=== PATIENT | female | born 1980 | race Two or more races ===

== ENCOUNTER → 2020-03-23 13:04 | Outpatient (BNVA) | payer SELFPAY | PROVIDERS: PCP Internal Medicine; Visit Provider Internal Medicine ==

== ENCOUNTER 2020-07-28 09:13 | Outpatient (REF) | payer MEDICAID, SELFPAY ==
[2020-07-28 10:11] LABS: Basophils Percent Auto 0.2 % (0-2); Eosinophils Absolute Auto 0.2 X10*3/uL (0.0-0.4); Eosinophils Percent Auto 1.2 % (0-4); Hematocrit 39.4 % (37-47); Hemoglobin 12.6 g/dl (12.0-16.0); Imm Gran Abs Auto 0.06 X10*3/uL (0.00-0.03); Imm Gran Pct Auto 0.5 % (0.0-0.4); Lymphocytes Absolute Auto 5.3 X10*3/uL (1.2-4.9); Lymphocytes Percent Auto 41.2 % (20-40); MANUAL DIFF FLAG SCAN; Mean Corpuscular Hemoglobin 26.7 pg (27.0-33.0); Mean Corpuscular Volume 83.5 fL (80-98); Mean Platelet Volume 9.4 fL (9.4-12.3); Monocytes Percent Auto 7.4 % (2-11); Neutrophils Absolute Auto 6.4 X10*3/uL (2.0-8.3); Neutrophils Percent Auto 49.5 % (45-73); Platelet Count 312 X10*3/uL (160-400); Red Blood Count 4.72 X10*6/uL (4.20-5.50); Red Cell Distribution Width 14.3 % (11.0-16.0); SCAN SMEAR FLAG 1; White Blood Count 12.9 X10*3/uL (4.8-10.8)
[2020-07-28 10:30] LABS: Estimated Average Glucose 128 mg/dL; Hemoglobin A1c % 6.1 %
[2020-07-28 10:32] LABS: Alanine Aminotransferase 15 U/L (0-31); Albumin Level 3.8 g/dL (3.5-5.0); Alkaline Phosphatase 69 U/L (39-117); Anion Gap 13 (12-20); Aspartate Amino Transferase 15 U/L (5-31); Bilirubin Total 0.3 mg/dL (0.0-1.0); Blood Urea Nitrogen 12 mg/dL (9-16); Calcium 8.4 mg/dL (8.4-10.2); Carbon Dioxide 26 mmol/L (22-29); Chloride 107 mmol/L (96-108); Cholesterol 170 mg/dL; Estimated Glomerular Filt Rate > 60; Glucose Random 92 mg/dL (60-115); HDL Cholesterol 46 mg/dL; LDL Cholesterol Calculated 97 mg/dl; Sodium 142 mmol/L (135-145); Total Protein 6.4 g/dL (6.5-8.0); Triglycerides 139 mg/dL
[2020-07-28 10:48] LABS: SLIDE REVIEW VERIFIED
== END 2020-07-28 09:14 | disposition home or self-care (01) ==
LOC: HO.LAB 09:13
PROVIDERS: PCP Internal Medicine; Visit Provider Internal Medicine
DX: E66.9 Obesity, unspecified (principal); E78.2 Mixed hyperlipidemia; N61.1 Abscess of the breast and nipple; Z72.0 Tobacco use
CPT/HCPCS: 36415; 80053; 80061; 83036; 85025

== ENCOUNTER 2021-09-17 12:29 | Emergency (ER) | payer MEDICAID, SELFPAY ==
[2021-09-17 14:20] VITALS: BP 146/83; PULSE 70; RESP 18; O2SAT 100; BMI 33.5
== END 2021-09-17 19:27 | disposition left against medical advice (07) ==
PROVIDERS: Emergency Provider Emergency Medicine; PCP Internal Medicine
DX: M79.661 Pain in right lower leg (principal); M79.644 Pain in right finger(s)
CPT/HCPCS: 99281

== ENCOUNTER 2022-01-03 11:51 | Outpatient (REF) | payer MEDICAID, SELFPAY ==
[2022-01-03 12:08] LABS: MANUAL DIFF FLAG NO
[2022-01-03 12:24] LABS: Basophils Percent Auto 0.3 % (0-2); Eosinophils Absolute Auto 0.1 X10*3/uL (0.0-0.4); Eosinophils Percent Auto 1.4 % (0-4); Hematocrit 37.5 % (37.0-47.0); Hemoglobin 11.9 g/dl (12.0-16.0); Imm Gran Abs Auto 0.02 X10*3/uL (0.00-0.03); Imm Gran Pct Auto 0.2 % (0.0-0.4); Lymphocytes Absolute Auto 4.1 X10*3/uL (1.2-4.9); Lymphocytes Percent Auto 43.4 % (20-40); Mean Corpuscular HGB Conc 31.7 g/dl (31.0-35.0); Mean Corpuscular Hemoglobin 26.2 pg (27.0-33.0); Mean Corpuscular Volume 82.6 fL (80.0-98.0); Monocytes Absolute Auto 0.6 X10*3/uL (0.1-1.2); Monocytes Percent Auto 6.7 % (2-11); Neutrophils Absolute Auto 4.5 x10*3/uL (2.0-8.3); Platelet Count 325 X10*3/uL (160-400); Red Blood Count 4.54 X10*6/uL (4.20-5.50); Red Cell Distribution Width 14.5 % (11.0-16.0); White Blood Count 9.4 X10*3/uL (4.8-10.8)
[2022-01-03 13:07] LABS: Alanine Aminotransferase 14 U/L (0-31); Alkaline Phosphatase 63 U/L (39-117); Anion Gap 14 (12-20); Aspartate Amino Transferase 15 U/L (5-31); Bilirubin Total 0.2 mg/dL (0.0-1.0); Blood Urea Nitrogen 7 mg/dL (9-16); Calcium 9.3 mg/dL (8.4-10.2); Carbon Dioxide 27 mmol/L (22-29); Chloride 105 mmol/L (96-108); Cholesterol 189 mg/dL; Estimated Glomerular Filt Rate > 60; Glucose Random 92 mg/dL (60-115); HDL Cholesterol 41 mg/dL; LDL Cholesterol Calculated 135 mg/dl; Potassium 4.8 mmol/L (3.3-5.1); Sodium 141 mmol/L (135-145); Total Protein 6.9 g/dL (6.5-8.0); Triglycerides 67 mg/dL
== END 2022-01-03 11:52 | disposition home or self-care (01) ==
LOC: HO.LAB 11:51
PROVIDERS: PCP Internal Medicine; Visit Provider Internal Medicine
DX: E66.9 Obesity, unspecified (principal); N39.3 Stress incontinence (female) (male); Z72.0 Tobacco use
CPT/HCPCS: 36415; 80053; 80061; 85025

== ENCOUNTER → 2023-11-25 12:52 | Outpatient (BNVA) | payer MEDICAID, SELFPAY | PROVIDERS: PCP Internal Medicine; Visit Provider Physician Assistant Surgical ==

== ENCOUNTER 2023-12-31 14:54 | Outpatient (REF) | payer MEDICAID, SELFPAY ==
[2023-12-31 15:15] LABS: MANUAL DIFF FLAG NO
[2023-12-31 15:43] LABS: Basophils Percent Auto 0.3 % (0-2); Eosinophils Absolute Auto 0.2 X10*3/uL (0.0-0.4); Eosinophils Percent Auto 1.8 % (0-4); Hematocrit 38.8 % (37.0-47.0); Hemoglobin 12.1 g/dl (12.0-16.0); Imm Gran Abs Auto 0.04 X10*3/uL (0.00-0.03); Imm Gran Pct Auto 0.4 % (0.0-0.4); Lymphocytes Absolute Auto 3.8 X10*3/uL (1.2-4.9); Lymphocytes Percent Auto 35.4 % (20-40); Mean Corpuscular HGB Conc 31.2 g/dl (31.0-35.0); Mean Corpuscular Hemoglobin 25.2 pg (27.0-33.0); Mean Corpuscular Volume 80.7 fL (80.0-98.0); Mean Platelet Volume 9.2 fL (9.4-12.3); Monocytes Absolute Auto 0.8 X10*3/uL (0.1-1.2); Monocytes Percent Auto 7.2 % (2-11); Neutrophils Absolute Auto 5.9 x10*3/uL (2.0-8.3); Neutrophils Percent Auto 54.9 % (45-73); Platelet Count 321 X10*3/uL (160-400); Red Blood Count 4.81 X10*6/uL (4.20-5.50); Red Cell Distribution Width 15.2 % (11.0-16.0); White Blood Count 10.8 X10*3/uL (4.8-10.8)
[2023-12-31 15:54] LABS: Estimated Average Glucose 126 mg/dL
[2023-12-31 16:10] LABS: Alanine Aminotransferase 15 U/L (0-31); Alkaline Phosphatase 65 U/L (39-117); Anion Gap 9 (12-20); Aspartate Amino Transferase 15 U/L (5-31); Bilirubin Total 0.2 mg/dL (0.0-1.0); Blood Urea Nitrogen 11 mg/dL (9-16); Calcium 9.6 mg/dL (8.4-10.2); Carbon Dioxide 30 mmol/L (22-29); Chloride 105 mmol/L (96-108); Cholesterol 195 mg/dL (<200); Estimated Glomerular Filt Rate > 60; Glucose Random 128 mg/dL (60-115); HDL Cholesterol 39 mg/dL (>40); LDL Cholesterol Calculated 120 mg/dL (<100); Potassium 4.2 mmol/L (3.3-5.1); Sodium 140 mmol/L (135-145); Total Protein 7.1 g/dL (6.5-8.0); Triglycerides 180 mg/dL (<150)
[2023-12-31 16:27] LABS: Thyroid Stimulating Hormone 1.75 uIU/mL (0.32-4.0)
== END 2023-12-31 14:55 | disposition home or self-care (01) ==
LOC: HO.LAB 14:54
PROVIDERS: PCP Internal Medicine; Visit Provider Internal Medicine
DX: E78.00 Pure hypercholesterolemia, unspecified (principal); G47.33 Obstructive sleep apnea (adult) (pediatric); I10 Essential (primary) hypertension; F17.200 Nicotine dependence, unspecified, uncomplicated
CPT/HCPCS: 36415; 80053; 80061; 83036; 84443; 85025

== ENCOUNTER 2024-01-08 02:32 | Emergency (ER) | payer MEDICAID, SELFPAY ==
--- NOTE | ~2024-01-08 | XR_ITS ---
EXAMINATION: XR CHEST 2 VIEWS CLINICAL INFORMATION: sob/prod cough COMPARISON: None. TECHNIQUE: PA and lateral chest radiograph FINDINGS: Normal appearance of the cardiomediastinal structures. Pleura normal pattern of pulmonary vasculature. No pulmonary consolidation is identified. Minimal multilevel anterior endplate osteophytosis of the thoracic spine. XR/XR chest 2V IMPRESSION: No cardiopulmonary abnormalities identified. Lungs clear. Electronically signed by: Wesley Bender MD 01/08/2024 04:23 AM EDT
[2024-01-08 02:37] VITALS: BP 158/100; PULSE 112; RESP 22; TEMP 37.3; O2SAT 97; BMI 42.9
--- NOTE | 2024-01-08 03:01 | MHC.EDTECH ---
pt placed on account resolution expert
[2024-01-08 03:25] LABS: MANUAL DIFF FLAG NO
[2024-01-08 03:26] LABS: Basophils Percent Auto 0.4 % (0-2); Eosinophils Absolute Auto 0.1 X10*3/uL (0.0-0.4); Eosinophils Percent Auto 1.6 % (0-4); Hematocrit 39.3 % (37.0-47.0); Hemoglobin 12.6 g/dl (12.0-16.0); Imm Gran Abs Auto 0.03 X10*3/uL (0.00-0.03); Imm Gran Pct Auto 0.4 % (0.0-0.4); Lymphocytes Percent Auto 25.9 % (20-40); Mean Corpuscular HGB Conc 32.1 g/dl (31.0-35.0); Mean Corpuscular Hemoglobin 25.3 pg (27.0-33.0); Mean Corpuscular Volume 78.8 fL (80.0-98.0); Mean Platelet Volume 8.6 fL (9.4-12.3); Monocytes Absolute Auto 0.8 X10*3/uL (0.1-1.2); Monocytes Percent Auto 11.2 % (2-11); Neutrophils Absolute Auto 4.6 x10*3/uL (2.0-8.3); Neutrophils Percent Auto 60.5 % (45-73); Platelet Count 284 X10*3/uL (160-400); Red Blood Count 4.99 X10*6/uL (4.20-5.50); Red Cell Distribution Width 15.4 % (11.0-16.0); White Blood Count 7.5 X10*3/uL (4.8-10.8)
[2024-01-08 03:40] LABS: Alanine Aminotransferase 18 U/L (0-31); Albumin Level 3.9 g/dL (3.5-5.0); Alkaline Phosphatase 64 U/L (39-117); Anion Gap 15 (12-20); Aspartate Amino Transferase 17 U/L (5-31); Bilirubin Total 0.3 mg/dL (0.0-1.0); Blood Urea Nitrogen 7 mg/dL (9-16); Calcium 9.6 mg/dL (8.4-10.2); Carbon Dioxide 23 mmol/L (22-29); Chloride 106 mmol/L (96-108); Creatinine Clr Calc Pharmacy 129.2; Estimated Glomerular Filt Rate > 60; Glucose Random 119 mg/dL (60-115); Sodium 140 mmol/L (135-145); Total Protein 7.1 g/dL (6.5-8.0)
[2024-01-08 04:02] LABS: Influenza A PCR NEGATIVE (Negative); Influenza B PCR NEGATIVE (Negative); Resp Syncy Virus RNA Qual PCR NEGATIVE (Negative); SARS COV2 PCR INHOUSE NEGATIVE (Negative)
[2024-01-08 06:00] VITALS: BP 123/89; PULSE 106; RESP 24; TEMP 37.2; O2SAT 95
[2024-01-08] MEDS: predniSONE 20 MG TABLET 60 MG PO (06:23)
[2024-01-08] MEDS: Acetaminophen 325 MG TABLET 975 MG PO (06:23)
--- NOTE | 2024-01-08 06:25 | ED.SOB ---
HPI - SOB/Dyspnea General Chief Complaint: Dyspnea Stated Complaint: fever,chest congestion Time Seen by Provider: 01/08/24 04:09 Source: patient Mode of arrival: ambulatory Limitations: no limitations History of Present Illness ED Provider: Dr. Calix HPI Narrative: patient presents with a 2 day history of cough and shortness of breath and wheezing with tactile fever. She states that she has a history of asthma. MD elicited complaint: shortness of breath and cough Pertinent past history: asthma Onset (ago): day(s) Related Data Home Medications ?Medication ?Instructions ?Recorded ?Confirmed albuterol sulfate 90 mcg/actuation 1 inh inhalation Q4-6H PRN 11/25/23 breath activated powder inhaler,sensor Previous Rx's ?Medication ?Instructions ?Recorded prednisone 20 mg tablet 60 mg (3 x 20 mg) PO DAILY #12 tabs 01/08/24 Allergies Allergy/AdvReac Type Severity Reaction Status Date / Time No Known Allergies Allergy Verified 01/08/24 02:40 Review of Systems Review of Systems: Yes all other systems are reviewed and are negative Neurologic: Denies Sensory deficit (Neuro) [facility] Past Medical History Medical History Venereal disease Morbid obesity HTN (hypertension) Asthma Surgical History Hx of removal of cyst Hx of thumb surgery History of dental surgery Hx of breast reduction, elective Family History Family History Paternal Grandfather Cancer Social History Social History Alcohol intake: never Patient Tobacco Use Status: Current everyday Tobacco user Cigarettes Per Day: 4 Advance Directives: No Advance Directives Information Provided: Yes Do you have a plan to hurt others: No Plan Physical Exam Vital Signs: Vital Signs: Last Vital Signs Temp 98.9 F 01/08/24 06:00 Pulse 106 H 01/08/24 06:00 Resp 24 H 01/08/24 06:00 BP 123/89 01/08/24 06:00 Pulse Ox 95 01/08/24 06:00 O2 Del Method Room Air 01/08/24 06:00 BMI result Body Mass Index 42.9 Const: General: healthy appearing Nutritional Appearance: average body habitus Orientation/consciousness: oriented to person and patient oriented x3 Limitations: no limitations HEENT: Head: Yes normal to inspection Ears: external ears normal General nose exam: Normal external nose present Mouth: Normal oral and palatal mucosa present and oropharynx normal Throat: Yes posterior oropharynx normal Eyes: General: appearance normal, both eyes and all related structures Neck: Other: supple Neck: Yes normal visual inspection Chest: Chest palpation & inspection: normal inspection of the chest Resp: Other: diffuse wheezing Cardio: Jugular venous distension: no JVD Rate: regular rate Rhythm: regular rhythm Heart sounds: S1 normal heart sound present and S2 normal heart sound present GI: Inspection: Yes normal to inspection Palpation (GI): Soft to palpation, nontender and No hepatosplenomegaly present Auscultation: normal bowel sounds : General: Yes no CVA tenderness Back/Spine/Pelvis: Back: no CVA tenderness Skin: General skin exam: no rashes or lesions noted Neuro: General: oriented to person and patient oriented x3 Cranial nerves: Yes CN's II-XII intact bilaterally Motor exam (neuro): 5/5 motor strength present throughout Sensory Exam: No Sensory deficit (Neuro) Extrem: General: Yes normal to inspection Psych: Appearance: grossly normal Course Reevaluation(s) Reevaluation #1: patient breathing better will give another dose of albuterol and dc home Time: 06:32 Medications Administered Discontinued Medications Generic Name Dose Route Start Last Admin Trade Name Freq PRN Reason Stop Dose Admin Acetaminophen 975 mg 01/08/24 04:09 01/08/24 06:23 Acetaminophen 325 Mg Tablet PO 01/08/24 04:10 975 mg ONCE ONE Administration Prednisone 60 mg 01/08/24 04:09 01/08/24 06:23 Prednisone 20 Mg Tablet PO 01/08/24 04:10 60 mg ONCE ONE Administration Medical Decision Making Differential Diagnosis Differential Diagnoses: The differential diagnosis associated with the presentation includes (asthma exacerbation, pneumonia, covid, rsv, influenza) Admission/Observation Consideration of admission/observation: Escalation of care including admission/observation considered (upon arrival admission was considered) Lab Data 01/08/24 03:20 01/08/24 03:20 Labs: Lab Results 01/08/24 01/08/24 Range/Units 03:20 03:21 WBC 7.5 (4.8-10.8) X10*3/uL RBC 4.99 (4.20-5.50) X10*6/uL Hgb 12.6 (12.0-16.0) g/dl Hct 39.3 (37.0-47.0) % MCV 78.8 L (80.0-98.0) fL MCH 25.3 L (27.0-33.0) pg MCHC 32.1 (31.0-35.0) g/dl RDW 15.4 (11.0-16.0) % Plt Count 284 (160-400) X10*3/uL MPV 8.6 L (9.4-12.3) fL Immature Gran % (Auto) 0.4 (0.0-0.4) % Neut % (Auto) 60.5 (45-73) % Lymph % (Auto) 25.9 (20-40) % Motley % (Auto) 11.2 H (2-11) % Eos % (Auto) 1.6 (0-4) % Baso % (Auto) 0.4 (0-2) % Lymph # (Auto) 2.0 (1.2-4.9) X10*3/uL Motley # (Auto) 0.8 (0.1-1.2) X10*3/uL Eos # (Auto) 0.1 (0.0-0.4) X10*3/uL Baso # (Auto) 0.0 (0.0-0.2) X10*3/uL Abs Immat Gran (auto) 0.03 (0.00-0.03) X10*3/uL Absolute Neuts (auto) 4.6 (2.0-8.3) x10*3/uL Absolute Nucleated RBC 0.000 (0.0-0.012) X10*3/uL Nucleated RBC % (auto) 0.0 (0.0-0.2) /100WBC Sodium 140 (135-145) mmol/L Potassium 4.0 (3.3-5.1) mmol/L Chloride 106 (96-108) mmol/L Carbon Dioxide 23 (22-29) mmol/L Anion Gap 15 (12-20) BUN 7 L (9-16) mg/dL Creatinine 0.70 (0.5-1.4) mg/dL Estim Creat Clear Calc 129.2 Estimated GFR > 60 Random Glucose 119 H (60-115) mg/dL Calcium 9.6 (8.4-10.2) mg/dL Total Bilirubin 0.3 (0.0-1.0) mg/dL AST 17 (5-31) U/L ALT 18 (0-31) U/L Alkaline Phosphatase 64 (39-117) U/L Total Protein 7.1 (6.5-8.0) g/dL Albumin 3.9 (3.5-5.0) g/dL Influenza Type A (PCR) NEGATIVE (Negative) Influenza Type B (PCR) NEGATIVE (Negative) RSV RNA Qual (PCR) NEGATIVE (Negative) SARS-CoV-2 RNA (RT-PCR) NEGATIVE (Negative) Independent Interpretation I performed an independent interpretation of an: Plain X-Ray (no infiltrate) Prescription Management I considered prescription management with: Antibiotic (no evidence of pneumonia so no abx) Chronic Conditions Patient?s care impacted by: Other (asthma) Discharge Plan Discharge Clinical Impression: Asthma with exacerbation Patient Disposition: Home, Self-Care Instructions: Asthma (ED) Prescriptions: New prednisone 20 mg tablet 60 mg PO DAILY Qty: 12 0RF No Action albuterol sulfate 90 mcg/actuation aero powdr breath act w/sensor 1 inh inhalation Q4-6H PRN Referrals: Pooja Vazquez MD [Primary Care Provider] - 5 days Print Language: Yi
[2024-01-08] MEDS: Albuterol Sulfate 5 MG, Albuterol Sulfate (0.083%) 2.5 MG 7.5 MG INHALE (06:47)
[2024-01-08 06:49] VITALS: PULSE 96; RESP 18; O2SAT 93
[2024-01-08 07:15] VITALS: BP 123/89; PULSE 96; RESP 18; TEMP 37.2; O2SAT 95
== END 2024-01-08 07:15 | disposition home or self-care (01) ==
PROVIDERS: Emergency Provider Emergency Medicine; PCP Internal Medicine
DX: J45.901 Unspecified asthma with (acute) exacerbation (principal); Z03.818 Encounter for observation for suspected exposure to other biological agents ruled out; R05.9 Cough, unspecified; I10 Essential (primary) hypertension; F17.210 Nicotine dependence, cigarettes, uncomplicated
CPT/HCPCS: 0241U; 36415; 71046; 80053; 85025; 94640; 99284; 99285

== ENCOUNTER 2024-01-21 14:08 | Emergency (ER) | payer MEDICAID, SELFPAY ==
--- NOTE | ~2024-01-21 | XR_ITS ---
EXAMINATION: XR CHEST, 2 VIEWS CLINICAL INFORMATION: Shortness of breath COMPARISON: 08/19/2023 TECHNIQUE: PA and lateral views of the chest were obtained. FINDINGS: Lungs are clear. No consolidation, pneumothorax, or pleural effusion. Cardiac and mediastinal contours are normal. Pulmonary vasculature is unremarkable. Trachea is midline. Osseous structures are unremarkable. XR/XR chest 2V IMPRESSION: No acute pulmonary findings. Electronically signed by: Floyd Pina MD 01/21/2024 04:02 PM EDT
[2024-01-21 14:15] VITALS: BP 152/99; PULSE 110; RESP 20; TEMP 36.6; O2SAT 97; BMI 45.8
--- NOTE | 2024-01-21 14:15 | ED_ITS ---
HPI - General Adult General Chief complaint: Dyspnea Stated complaint: [id number] Time Seen by Provider: 01/21/24 15:26 Source: patient Mode of arrival: ambulatory Limitations: no limitations History of Present Illness HPI narrative: This is a 43-year-old woman with a past medical history of asthma who presents for evaluation of swelling and dyspnea. Patient states that she was seen here recently for an asthma exacerbation and given a prescription for prednisone. She states completing her prednisone few days ago. She states like she feels like her asthma is under control, but states that she intermittently feels dyspneic. She states no fevers, chills, cough or sputum production. She states no hemoptysis. She states chest tightness when she is coughing. She states no exertional chest pain. She states no back pain or abdominal pain. She states no nausea or vomiting. She states no changes to bowel habits or urinary symptoms. Related Data Home Medications ?Medication ?Instructions ?Recorded ?Confirmed albuterol sulfate 90 mcg/actuation 1 inh inhalation Q4-6H PRN 11/25/23 breath activated powder inhaler,sensor Previous Rx's ?Medication ?Instructions ?Recorded prednisone 20 mg tablet 60 mg (3 x 20 mg) PO DAILY #12 tabs 01/08/24 budesonide-formoterol HFA 160 1 puff inhalation QAM #10.2 grams 01/21/24 mcg-4.5 mcg/actuation aerosol inhaler (Symbicort) Allergies Allergy/AdvReac Type Severity Reaction Status Date / Time No Known Allergies Allergy Verified 01/21/24 14:18 Review of Systems 2 Review of Systems: ROS as per HPI PMFSH Past Medical History Medical History Venereal disease Morbid obesity HTN (hypertension) Asthma Surgical History Hx of removal of cyst Hx of thumb surgery History of dental surgery Hx of breast reduction, elective Family History Family History Paternal Grandfather Cancer Social History Social History Alcohol intake: never Patient Tobacco Use Status: Current everyday Tobacco user Cigarettes Per Day: 4 Smoked in Last 30 Days: Yes Advance Directives: No Advance Directives Information Provided: No Do you have a plan to hurt others: No Plan Physical Exam ED Vital Signs: Vital Signs - 24 hr 01/21/24 14:15 01/21/24 15:26 Temperature 98 F 98.5 F Pulse Rate 110 H 98 Respiratory Rate 20 20 Blood Pressure 152/99 H 124/74 Pulse Oximetry 97 95 Oxygen Delivery Method Room Air Room Air BMI result Body Mass Index 45.8 Gen: NAD, AOx3 HEENT: NCAT, EOMI, normal conjunctiva, uvula midline without edema CV: RRR, no murmurs appreciated, no pretibial pitting edema Pulm: Scattered expiratory wheezes, good aeration, no increased work of breathing, no respiratory distress, no rhonchi, rales or stridor GI: Soft, NTND, no rebound, guarding or rigidity MSK: No calf edema/erythema/attempts to palpation Neuro: Grossly non focal Course Course Course Narrative: This is an RME: Additional HPI, ROS, PE not included below will be deferred to primary provider. RME assessment and note performed by: Valeria Avendaño PA-C This is a [id number] who presents to the ER with complaints of SOB, chest pain, and diffuse body swelling. She was seen here 01/07 for an asthma exacerbation and was given prednisone 60mg x 4 days which she had taken and then she noticed increase diffuse body swelling. Plan: Labs, EKG, CXR Medical Decision Making Medical Decision Making MDM Narrative: Differential diagnosis includes, but is not limited to medication effect, asthma exacerbation. Patient is afebrile and hemodynamically stable on room air. Exam is notable for wheezing consistent with bronchospasm. She is in no respiratory distress. Regardless, patient is given nebulized albuterol. She states that she has been using her albuterol inhaler with a spacer at home 3 or 4 times per day. It appears that her asthma isn't very well controlled and thus will provide patient outpatient pulmonology referral and initiate maintenance therapy with the Symbicort. I reviewed and interpreted labs, which are noncontributory. I reviewed and interpreted EKG, which is unremarkable for any acute findings. Diagnostic imaging studies are unremarkable for any acute findings. On re-examination, patient is well-appearing and in no acute distress. ?There is very minimal evidence of generalized swelling on exam which may be secondary to fluid retention in the context of recent prednisone use. Evaluation otherwise is very reassuring. I do not suspect congestive heart failure given lack of cardiac history. I do not suspect pulmonary embolism. Suspect the tachycardia initially was due to mild dyspnea and certainly is not expected to completely resolve following beta agonist therapy. Patient is very well-appearing and There is no indication for further emergent evaluation in this otherwise well- appearing patient as above. ?Patient is provided written and verbal instructions, educational materials, pulmonology referral, prescription for Symbicort, recommendations for outpatient follow-up, strict return precautions and teach back is performed. ?Patient states understanding and agreement with plan of care. ?Patient is discharged home in stable and improved condition. Admission/Observation Consideration of admission/observation: Escalation of care including admission/observation considered I considered admission, but clinical evaluation is reassuring and there is no indication for inpatient hospitalization Lab Data MDM Lab Attestation statement: I reviewed the patient's lab results. I reviewed and interpreted patient's labs which are notable for leukocytosis of 15.9, which is likely secondary to recent prednisone use. Patient has negative for COVID-19, influenza and RSV. 01/21/24 14:33 01/21/24 14:32 Labs: Lab Results 01/21/24 01/21/24 Range/Units 14:32 14:33 WBC 15.9 H (4.8-10.8) X10*3/uL RBC 4.63 (4.20-5.50) X10*6/uL Hgb 12.1 (12.0-16.0) g/dl Hct 37.5 (37.0-47.0) % MCV 81.0 (80.0-98.0) fL MCH 26.1 L (27.0-33.0) pg MCHC 32.3 (31.0-35.0) g/dl RDW 16.6 H (11.0-16.0) % Plt Count 266 (160-400) X10*3/uL MPV 8.8 L (9.4-12.3) fL Immature Gran % (Auto) 0.9 H (0.0-0.4) % Neut % (Auto) 61.5 (45-73) % Lymph % (Auto) 29.5 (20-40) % Ellis % (Auto) 6.4 (2-11) % Eos % (Auto) 1.6 (0-4) % Baso % (Auto) 0.1 (0-2) % Lymph # (Auto) 4.7 (1.2-4.9) X10*3/uL Ellis # (Auto) 1.0 (0.1-1.2) X10*3/uL Eos # (Auto) 0.3 (0.0-0.4) X10*3/uL Baso # (Auto) 0.0 (0.0-0.2) X10*3/uL Abs Immat Gran (auto) 0.15 H (0.00-0.03) X10*3/uL Absolute Neuts (auto) 9.8 H (2.0-8.3) x10*3/uL Absolute Nucleated RBC 0.000 (0.0-0.012) X10*3/uL Nucleated RBC % (auto) 0.0 (0.0-0.2) /100WBC PT 12.7 (11.1-13.3) SEC INR 1.0 (0.9-1.1) APTT 29.7 (26.0-36.8) SEC Sodium 142 (135-145) mmol/L Potassium 3.8 (3.3-5.1) mmol/L Chloride 102 (96-108) mmol/L Carbon Dioxide 32 H (22-29) mmol/L Anion Gap 12 (12-20) BUN 12 (9-16) mg/dL Creatinine 0.68 (0.5-1.4) mg/dL Estim Creat Clear Calc 138.1 Estimated GFR > 60 Random Glucose 117 H (60-115) mg/dL Calcium 8.9 D (8.4-10.2) mg/dL Total Bilirubin 0.5 (0.0-1.0) mg/dL Direct Bilirubin 0.2 (0.0-0.5) mg/dL AST 16 (5-31) U/L ALT 27 (0-31) U/L Alkaline Phosphatase 51 (39-117) U/L Troponin I High Sens < 2.7 (<3.5-17.0) ng/L B-Natriuretic Peptide < 10 (<100) pg/mL Total Protein 6.0 L (6.5-8.0) g/dL Albumin 3.4 L (3.5-5.0) g/dL Influenza Type A (PCR) NEGATIVE (Negative) Influenza Type B (PCR) NEGATIVE (Negative) RSV RNA Qual (PCR) NEGATIVE (Negative) SARS-CoV-2 RNA (RT-PCR) NEGATIVE (Negative) Independent Interpretation I performed an independent interpretation of an: EKG and Plain X-Ray Interpretation: I independently reviewed and interpreted the patient's chest x-ray which demonstrates no pneumothorax or focal consolidation. I independently reviewed and interpreted patient's EKG which demonstrates sinus tachycardia at 104 beats per minute, HI 150, QRS 82, QTC 468, no STEMI Discharge Plan Discharge Clinical Impression: Asthma with exacerbation Patient Disposition: Home, Self-Care Instructions: Asthma (ED) Additional Instructions: You were seen and evaluated in the emergency room. Your blood work, EKG and chest x-ray were all very reassuring. You were noted to have wheezing in her lungs. Please continue to use your albuterol inhaler with a spacer as needed for difficulty breathing or wheezing. You are given a prescription for a new inhaler that you should use every day. You are given a referral to follow up with the lung doctor (transformer assembler). Please call them and make a follow-up appointment in next 1-2 weeks. Please return to the emergency room if you have any new or worsening symptoms including, but not limited to fever, chest pain or difficulty breathing. Prescriptions: New budesonide-formoterol [Symbicort] 160-4.5 mcg/actuation HFA aerosol inhaler 1 puff inhalation QAM Qty: 10.2 0RF No Action prednisone 20 mg tablet 60 mg PO DAILY Qty: 12 0RF albuterol sulfate 90 mcg/actuation aero powdr breath act w/sensor 1 inh inhalation Q4-6H PRN Referrals: Filemon Wilson MD [Physician] - Print Language: Lao
--- NOTE | 2024-01-21 14:22 | ECG_ITS ---
Test Reason : CHEST PAIN Blood Pressure : / mmHG Vent. Rate : 104 BPM Atrial Rate : 104 BPM P-R Int : 150 ms QRS Dur : 082 ms QT Int : 356 ms P-R-T Axes : 056 060 040 degrees QTc Int : 468 ms Sinus tachycardia Otherwise normal ECG When compared with ECG of 30-APR-2006 18:41, Heart rate has increased Referred By: Valeria Avendaño Electronically Signed By:KHUSHBU JOHNSON
[2024-01-21 14:39] LABS: MANUAL DIFF FLAG NO
[2024-01-21 14:41] LABS: Basophils Percent Auto 0.1 % (0-2); Eosinophils Absolute Auto 0.3 X10*3/uL (0.0-0.4); Eosinophils Percent Auto 1.6 % (0-4); Hematocrit 37.5 % (37.0-47.0); Hemoglobin 12.1 g/dl (12.0-16.0); Imm Gran Abs Auto 0.15 X10*3/uL (0.00-0.03); Imm Gran Pct Auto 0.9 % (0.0-0.4); Lymphocytes Absolute Auto 4.7 X10*3/uL (1.2-4.9); Lymphocytes Percent Auto 29.5 % (20-40); Mean Corpuscular HGB Conc 32.3 g/dl (31.0-35.0); Mean Corpuscular Hemoglobin 26.1 pg (27.0-33.0); Mean Platelet Volume 8.8 fL (9.4-12.3); Monocytes Percent Auto 6.4 % (2-11); Neutrophils Absolute Auto 9.8 x10*3/uL (2.0-8.3); Neutrophils Percent Auto 61.5 % (45-73); Platelet Count 266 X10*3/uL (160-400); Red Blood Count 4.63 X10*6/uL (4.20-5.50); Red Cell Distribution Width 16.6 % (11.0-16.0); White Blood Count 15.9 X10*3/uL (4.8-10.8)
[2024-01-21 14:53] LABS: Prothrombin Time 12.7 SEC (11.1-13.3)
[2024-01-21 14:55] LABS: Alanine Aminotransferase 27 U/L (0-31); Albumin Level 3.4 g/dL (3.5-5.0); Alkaline Phosphatase 51 U/L (39-117); Anion Gap 12 (12-20); Aspartate Amino Transferase 16 U/L (5-31); Bilirubin Direct 0.2 mg/dL (0.0-0.5); Bilirubin Total 0.5 mg/dL (0.0-1.0); Blood Urea Nitrogen 12 mg/dL (9-16); Calcium 8.9 mg/dL (8.4-10.2); Carbon Dioxide 32 mmol/L (22-29); Chloride 102 mmol/L (96-108); Creatinine Clr Calc Pharmacy 138.1; Estimated Glomerular Filt Rate > 60; Glucose Random 117 mg/dL (60-115); Potassium 3.8 mmol/L (3.3-5.1); Sodium 142 mmol/L (135-145)
[2024-01-21 14:56] LABS: Partial Thromboplastin Time 29.7 SEC (26.0-36.8)
[2024-01-21 15:00] LABS: Troponin-I High Sensitivity < 2.7 ng/L (<3.5-17.0)
[2024-01-21 15:05] LABS: B Type Natriuretic Peptide < 10 pg/mL (<100)
[2024-01-21 15:19] LABS: Influenza A PCR NEGATIVE (Negative); Influenza B PCR NEGATIVE (Negative); Resp Syncy Virus RNA Qual PCR NEGATIVE (Negative); SARS COV2 PCR INHOUSE NEGATIVE (Negative)
[2024-01-21 15:26] VITALS: BP 124/74; PULSE 98; RESP 20; TEMP 36.9; O2SAT 95
--- NOTE | 2024-01-21 15:31 | PC.NURSE ---
patient complaining of generalized body pain and swelling, states that she recently ended her prednisone and noticed swelling since. family at bedside, vss. call gardner within reach
--- NOTE | 2024-01-21 15:39 | ED_ITS ---
HPI - General Adult General Chief complaint: Dyspnea Stated complaint: [id number] Time Seen by Provider: 01/21/24 15:26 History of Present Illness HPI narrative: Note created in error. please remove from the record Related Data Home Medications ?Medication ?Instructions ?Recorded ?Confirmed albuterol sulfate 90 mcg/actuation 1 inh inhalation Q4-6H PRN 11/25/23 02/05/24 breath activated powder inhaler,sensor Allergies Allergy/AdvReac Type Severity Reaction Status Date / Time No Known Allergies Allergy Verified 02/05/24 14:01 Review of Systems 2 Review of Systems: ROS as per HPI PMFSH Past Medical History Medical History Delivery with history of Venereal disease Morbid obesity HTN (hypertension) Asthma Surgical History Hx of removal of cyst Hx of thumb surgery History of dental surgery Hx of breast reduction, elective Family History Family History Paternal Grandfather Cancer Social History Social History Alcohol intake: never Patient Tobacco Use Status: Current someday Tobacco user Cigarettes Per Day: 3 Physical Exam ED Vital Signs: Vital Signs - 24 hr 01/21/24 14:15 01/21/24 15:26 Temperature 98 F 98.5 F Pulse Rate 110 H 98 Respiratory Rate 20 20 Blood Pressure 152/99 H 124/74 Pulse Oximetry 97 95 Oxygen Delivery Method Room Air Room Air BMI result Body Mass Index 45.8 Medications Administered Discontinued Medications Generic Name Dose Route Start Last Admin Trade Name Freq PRN Reason Stop Dose Admin Albuterol Sulfate 7.5 mg 01/21/24 15:37 01/21/24 16:03 Albuterol Sulfate (0.083%) 2.5 Mg/3 Ml Vial.Neb INHALE 01/21/24 15:38 7.5 mg ONCE ONE Administration Medical Decision Making Lab Data 01/21/24 14:33 01/21/24 14:32 Labs: Lab Results 01/21/24 01/21/24 Range/Units 14:32 14:33 WBC 15.9 H (4.8-10.8) X10*3/uL RBC 4.63 (4.20-5.50) X10*6/uL Hgb 12.1 (12.0-16.0) g/dl Hct 37.5 (37.0-47.0) % MCV 81.0 (80.0-98.0) fL MCH 26.1 L (27.0-33.0) pg MCHC 32.3 (31.0-35.0) g/dl RDW 16.6 H (11.0-16.0) % Plt Count 266 (160-400) X10*3/uL MPV 8.8 L (9.4-12.3) fL Immature Gran % (Auto) 0.9 H (0.0-0.4) % Neut % (Auto) 61.5 (45-73) % Lymph % (Auto) 29.5 (20-40) % [place] % (Auto) 6.4 (2-11) % Eos % (Auto) 1.6 (0-4) % Baso % (Auto) 0.1 (0-2) % Lymph # (Auto) 4.7 (1.2-4.9) X10*3/uL [place] # (Auto) 1.0 (0.1-1.2) X10*3/uL Eos # (Auto) 0.3 (0.0-0.4) X10*3/uL Baso # (Auto) 0.0 (0.0-0.2) X10*3/uL Abs Immat Gran (auto) 0.15 H (0.00-0.03) X10*3/uL Absolute Neuts (auto) 9.8 H (2.0-8.3) x10*3/uL Absolute Nucleated RBC 0.000 (0.0-0.012) X10*3/uL Nucleated RBC % (auto) 0.0 (0.0-0.2) /100WBC PT 12.7 (11.1-13.3) SEC INR 1.0 (0.9-1.1) APTT 29.7 (26.0-36.8) SEC Sodium 142 (135-145) mmol/L Potassium 3.8 (3.3-5.1) mmol/L Chloride 102 (96-108) mmol/L Carbon Dioxide 32 H (22-29) mmol/L Anion Gap 12 (12-20) BUN 12 (9-16) mg/dL Creatinine 0.68 (0.5-1.4) mg/dL Estim Creat Clear Calc 138.1 Estimated GFR > 60 Random Glucose 117 H (60-115) mg/dL Calcium 8.9 D (8.4-10.2) mg/dL Total Bilirubin 0.5 (0.0-1.0) mg/dL Direct Bilirubin 0.2 (0.0-0.5) mg/dL AST 16 (5-31) U/L ALT 27 (0-31) U/L Alkaline Phosphatase 51 (39-117) U/L Troponin I High Sens < 2.7 (<3.5-17.0) ng/L B-Natriuretic Peptide < 10 (<100) pg/mL Total Protein 6.0 L (6.5-8.0) g/dL Albumin 3.4 L (3.5-5.0) g/dL Influenza Type A (PCR) NEGATIVE (Negative) Influenza Type B (PCR) NEGATIVE (Negative) RSV RNA Qual (PCR) NEGATIVE (Negative) SARS-CoV-2 RNA (RT-PCR) NEGATIVE (Negative) Discharge Plan Discharge Clinical Impression: Asthma with exacerbation Patient Disposition: Home, Self-Care Instructions: Asthma (ED) Additional Instructions: You were seen and evaluated in the emergency room. Your blood work, EKG and chest x-ray were all very reassuring. You were noted to have wheezing in her lungs. Please continue to use your albuterol inhaler with a spacer as needed for difficulty breathing or wheezing. You are given a prescription for a new inhaler that you should use every day. You are given a referral to follow up with the lung doctor (data report analyst). Please call them and make a follow-up appointment in next 1-2 weeks. Please return to the emergency room if you have any new or worsening symptoms including, but not limited to fever, chest pain or difficulty breathing. Prescriptions: No Action albuterol sulfate 90 mcg/actuation aero powdr breath act w/sensor 1 inh inhalation Q4-6H PRN Referrals: Filemon Wilson MD [Physician] - Interventions: ED Discharge Assessment Last Done: 01/21/24 16:50 Discharge Date/Time: 01/21/24 16:50 Print Language: Divehi
--- OUTSIDE RECORDS SUMMARY | 2024-01-21 15:48 | XMS_ITS | Continuity of Care Document ---
Author Organization [facility] ter Address [address] [place] [id number] Care Team Providers Care Industrial Gas Production Operator Name Role Phone Pooja Vazquez MD Primary Care Physician [phone] [place] [facility] [place] 07/22/20 - 07/22/[address] [id number]- Encounter Diagnosis Breast wound(Final) - 07/22/20 Discharge Disposition: A-D/C Home Attending Physician: Yuliana Gerber MD Admitting Physician: Yuliana Gerber MD Referring Physician: Not on Staff, Referring MD Allergies, Adverse Reactions, Alerts Substance Reaction Severity Status NKA Active Medications Keflex monohydrate 500 mg oral capsule 1 capsule = 500 mg, By Mouth, 4 times a day, for 5 days, # 20 capsule, 0 Refills, Acute 07/27/20 15:52:00 EST, 07/22/20 15:52:00 EST, Capsule, [id number], Partial fill upon patient request ifthe prescription is for a schedule II opioid drug. Start Date: 07/22/20 Stop Date: 07/27/20 Status: Ordered predniSONE 20 mg oral tablet 2 tablet = 40 mg, By Mouth, Daily, # 8 tablet, 0 Refills, Maintenance, 07/22/20 15:52:00 EST, Tablet, [id number], Partial fill upon patient request if the prescription is for a schedule II opioid drug. Start Date: 07/22/20 Stop Date: 07/26/20 Status: Ordered Vital Signs Most recent to oldest [Reference Range]: 1 2 3 Oxygen Saturation [94-100 %] 99 % (07/22/20 4:06 PM) 94 % (07/22/20 1:49 PM) 99 % (07/22/20 1:06 PM) Pulse Rate [55-90 bpm] 77 bpm (07/22/20 4:06 PM) 90 bpm (07/22/20 1:49 PM) 105 bpm *H* (07/22/20 1:06 PM) Blood Pressure [90-138/55-84 mm Hg] 142/62mm Hg *H* (07/22/20 4:06 PM) 146/82mm Hg *H* (07/22/20 1:49 PM) 143/98mm Hg *H* (07/22/20 1:06 PM) Respiratory Rate [16-30 br/min] 20 br/min (07/22/20 4:06 PM) 20 br/min (07/22/20 1:49 PM) 18 br/min (07/22/20 1:06 PM) Temperature [96.8-100.4 DegF] 98.3 DegF (07/22/20 4:06 PM) 98.5 DegF (07/22/20 1:06 PM) Mode of Delivery (Oxygen) Room air (07/22/20 4:06 PM) RA (07/22/20 1:49 PM) Temperature Route Oral (07/22/20 4:06 PM)
[2024-01-21] MEDS: Albuterol Sulfate (0.083%) 2.5 MG/3 ML VIAL.NEB 7.5 MG INHALE (16:03)
[2024-01-21 16:05] VITALS: PULSE 92; RESP 18; O2SAT 97
[2024-01-21 16:50] VITALS: BP 124/74; PULSE 92; RESP 18; TEMP 36.9; O2SAT 95
== END 2024-01-21 16:50 | disposition home or self-care (01) ==
PROVIDERS: Physician Assistant Medical; Emergency Provider Emergency Medicine; PCP Internal Medicine
DX: J45.901 Unspecified asthma with (acute) exacerbation (principal); R06.00 Dyspnea, unspecified; R60.9 Edema, unspecified; I10 Essential (primary) hypertension; Z79.899 Other long term (current) drug therapy; Z03.818 Encounter for observation for suspected exposure to other biological agents ruled out
CPT/HCPCS: 0241U; 71046; 80048; 80076; 83880; 84484; 85025; 85610; 85730; 93005; 94640; 99283; 99284; 99285

== ENCOUNTER 2024-02-05 13:52 | Outpatient (AMB) | payer MEDICAID, SELFPAY ==
--- NOTE | 2024-02-05 13:56 | MHC.OFFVISWM ---
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 Weight Management surgical weight loss program. She heard about our program from her family and pcp. Her goal is to lose weight and achieve a healthy lifestyle as well as to improve, if not resolve, obesity related medical conditions, including possible htn. She reports first being concerned about her weight 1-2 years ago, highest weight to date was 330. Current weight is 257.8 pounds with a BMI of 44.3. She has tried multiple methods of weight loss including fad diets without permanent results. She lives with her daughter. She works 7 days per week, helping take care of her father. She wakes at:?6 am, and goes to bed at?10 pm. Dinner is at 4-5 pm. Breakfast: coffee w cream and sugar AM snack: skip Lunch: sandwich PM snack: skip Dinner: rice and beans and meat After dinner: skip Other snacks: chips Liquids: vitamin water 40 oz, 40-60 oz sprite, no juice Alcohol/marijuana/tobacco intake: no etoh, smoke cannabis daily, 2-3 cigarettes daily Exercise: none GERD score: 0 EDVIN score: 1 ESS score: 3 QOL score: 143 PFSH Medical History Delivery with history of Venereal disease Morbid obesity HTN (hypertension) Asthma Surgical History Hx of removal of cyst Hx of thumb surgery History of dental surgery Hx of breast reduction, elective Family History Paternal Grandfather Cancer Social History Alcohol intake: never Patient Tobacco Use Status: Current someday Tobacco user Cigarettes Per Day: 3 Physical Exam Const General: cooperative, healthy appearing and no acute distress Orientation/consciousness: patient oriented x3 HEENT Head: Yes normal to inspection Ears: hearing grossly normal bilaterally General nose exam: Normal external nose present Face and sinus: Yes normal facial exam Eyes General: appearance normal, both eyes and all related structures Resp Effort & Inspection: normal respiratory effort Auscultation: clear to auscultation bilaterally Cardio Rate: regular rate Rhythm: regular rhythm Heart sounds: S1 normal heart sound present and S2 normal heart sound present GI Inspection: Yes normal to inspection, No distended and Yes obesity Palpation (GI): Soft to palpation, nontender and no guarding Auscultation: normal bowel sounds Skin General skin exam: no rashes or lesions noted Neuro General: patient oriented x3 Extrem General: No edema Psych Appearance: grossly normal Mental Status: mental status grossly normal Speech and movement: Normal speech and movement present Affect: normal affect Attitude: cooperative Assessment & Plan Assessment & Plan (1) Morbid obesity: Code(s): E66.01 - Morbid (severe) obesity due to excess calories Category: Medical Plan: This is a?43 yo female who will start our SWL program to prepare for bariatric surgery.? Blood work, CXR, ECG, Abd US and UGI have been ordered. She is being scheduled for initial consultations. She will start SWL classes and watch the first three videos before her next appointment. 1. You have been given a paper with a link to our software magdalena ([email or web address]) to generate an individualized nutritional and exercise plan specific for you. Please send me a screenshot of the plans you will generate Meal to include lean meat (beef, fish, pork, turkey, chicken), or german yogurt, or egg whites, or beans with a salad with olive oil and fruits (berries, pears, apples, kiwi). Avoid salt, breads, potatoes, rice, pasta, desserts. 2. If you choose shakes, each shake would be drunk slowly, like coffee over a period of 2 hours. 3. If you choose bars, cut each bar in 4 pieces and eat each piece in 30 min to make each bar last 2 hours. 4. I emphasized the importance of measuring accurately the food portion and measure it when serving the food on a plate 5. The meal portions include a specific number of forks of meat (protein) and salad. You always eat the meat portion but you can replace up to half of salad/vegetables portion with rice, potatoes or pasta, or a fruit ?if you like. The less you do it the better weight loss will be. 6. One full-size fork is what can be scooped on the fork without falling aside and not what can be bit with the fork. Use regular forks like those you find in a typical restaurant. 7.? Please send me weight measurements from your body composition scale as soon as possible and then once a week. Always include your diet and exercise plan. The best time to weigh yourself is first thing in the morning after going to the bathroom. 8. The best choice for exercise would be using your stationary bike at home and/or joining the [facility] gym near your home. Alternatively start walking outside daily, tracking calories with a goal of 300 calories per day, daily. You can download the magdalena [employer] which can track your time, distance and calories while walking outside. You press start in the magdalena when you start and then stop when you are finished. 9.?Goal is to lose at least 1.5-2 lbs per week, and about 10% before surgery, which is about 25 pounds 10. Please follow the diet plan exactly without any change. If you don't like something about the plan or you feel hungry you need to communicate with me so I can help you revise the plan. My cell phone number to communicate with me by text is [phone] Patient is morbidly obese and is not considered stable at this time.?I spent a total of 70 minutes reviewing/updating records, examining the patient and counseling the patient on weight management as detailed above.
[2024-02-05 14:11] VITALS: BP 124/87; PULSE 83; TEMP 36.6; O2SAT 96; BMI 42.2
== END 2024-02-05 14:55 | disposition home or self-care (01) ==
PROVIDERS: PCP Internal Medicine; Visit Provider Physician Assistant Surgical
DX: E66.01 Morbid (severe) obesity due to excess calories (principal)
CPT/HCPCS: 99205

== ENCOUNTER → 2024-02-05 13:52 | Outpatient (BNVA) | payer MEDICAID, SELFPAY | PROVIDERS: PCP Internal Medicine; Visit Provider Physician Assistant Surgical | DX: E66.01 Morbid (severe) obesity due to excess calories (principal); Z68.41 Body mass index [BMI] 40.0-44.9, adult | CPT/HCPCS: 99212 ==

== ENCOUNTER 2024-04-24 21:59 | Emergency (ER) | payer MEDICAID, SELFPAY ==
[2024-04-24 22:15] VITALS: BP 132/84; PULSE 90; RESP 14; TEMP 36.4; O2SAT 96; BMI 46.2
[2024-04-25] MEDS: Tetracaine HCl/PF 0.5% Oph Sol 4 ML DROPS 3 DROP EYE-LEFT (01:25)
[2024-04-25] MEDS: Fluorescein Sodium STRIP 1 STRIP EYE-LEFT (01:25)
--- NOTE | 2024-04-25 01:38 | ED.GENADULT ---
HPI - General Adult General Chief complaint: Eye Problems Stated complaint: left eye pain Time Seen by Provider: 04/25/24 01:07 Source: patient, RN notes reviewed and old records reviewed Mode of arrival: ambulatory Limitations: no limitations History of Present Illness ED Provider: Vannessa MENENDEZ narrative: 44-year-old female presents for evaluation of a foreign body sensation in her left eye. Patient reports that she was cleaning 4 days ago. There was a lot of dust and dog hair. She believes she may have gotten something in her left eye. She reports most of the pain is to the left eye on the upper side adjacent to the nose. However the sensation does move around her eye She denies any blurry vision. She does not wear contacts or corrective lenses There is not been any drainage from the eye but her eye has been red Related Data Home Medications ?Medication ?Instructions ?Recorded ?Confirmed albuterol sulfate 90 mcg/actuation 1 inh inhalation Q4-6H PRN 11/25/23 02/05/24 breath activated powder inhaler,sensor Previous Rx's ?Medication ?Instructions ?Recorded tobramycin 0.3 % eye drops 2 drp ophthalmic-Left Q4H 5 days 04/25/24 #5 mL Allergies Allergy/AdvReac Type Severity Reaction Status Date / Time No Known Allergies Allergy Verified 04/24/24 22:18 Review of Systems Constitutional: Constitutional: Denies body ache(s), Denies chills and Denies headache(s) Eyes: Eyes: Denies blurry vision, Reports eye discharge (Watery discharge home), Reports irritation and Reports eye pain ENT: Denies headache(s) Neurologic: Denies headache(s) [facility] Past Medical History Medical History Delivery with history of Venereal disease Morbid obesity HTN (hypertension) Asthma Surgical History Hx of removal of cyst Hx of thumb surgery History of dental surgery Hx of breast reduction, elective Family History Family History Paternal Grandfather Cancer Social History Social History Alcohol intake: never Patient Tobacco Use Status: Current someday Tobacco user Cigarettes Per Day: 3 Advance Directives: No Do you have a plan to hurt others: No Plan Physical Exam ED Vital Signs: Vital Signs - 24 hr 04/24/24 22:15 Temperature 97.6 F Pulse Rate 90 Respiratory Rate 14 Blood Pressure 132/84 Pulse Oximetry 96 BMI result Body Mass Index 46.2 Const General: healthy appearing, comfortable, no acute distress, alert and awake Nutritional Appearance: well nourished Orientation/consciousness: patient oriented x3 HENMT Head: Yes normocephalic and Yes atraumatic Eyes Periorbital: periorbital findings normal Eyelids: Yes eyelids normal Conjunctivae: conjunctival abnormal (There is diffuse left eye conjunctival injection. There is no obvious fore) Sclerae: sclerae normal Corneas: corneas normal and fluorescein used (No increased fluorescein uptake) Pupils: Equal, round and reactive pupils present EOM: EOMs intact bilaterally Resp Effort & Inspection: normal respiratory effort, able to speak in complete sentences and not labored Skin General skin exam: elasticity normal Neuro General: patient oriented x3 Cranial nerves: Yes Equal, round and reactive pupils present and Yes Bilaterally intact EOM present Cognition (Neuro): normal cognition Extrem Other: Moving all extremities well without any obvious deformities Medications Administered Discontinued Medications Generic Name Dose Route Start Last Admin Trade Name Freq PRN Reason Stop Dose Admin Fluorescein Sodium 1 strip 04/25/24 01:07 04/25/24 01:25 Fluorescein Sodium Strip EYE-LEFT 04/25/24 01:08 1 strip ONCE ONE Administration Tetracaine HCl 3 drop 04/25/24 01:07 04/25/24 01:25 Tetracaine Hcl/Pf 0.5% Oph Zoë 4 Ml Drops EYE-LEFT 04/25/24 01:08 3 drop ONCE ONE Administration Medical Decision Making Medical Decision Making [facility] Narrative: 44-year-old female presents for evaluation of a left eye foreign body sensation. Fluorescein uptake does not show any significant areas of uptake. I did not see any obvious foreign body. I attempted to alireza the eyelid and did not see any foreign body underneath the upper eyelid. I did flushed the eye with normal saline, approximately 20 cc. The patient reports that her symptoms were improved after flushing. There may have been a very tiny foreign body that was irrigated out that I did not see. The patient will be referred to Dr. Mccrary if she has any further issues. We will cover her with antibiotics given her 4 days of symptoms Differential Diagnosis Differential Diagnoses: The differential diagnosis associated with the presentation includes Corneal abrasion Foreign body Iritis Glaucoma less likely Discharge Plan Discharge Clinical Impression: Foreign body sensation, left eye Patient Disposition: Home, Self-Care Instructions: Eye Pain (ED) Additional Instructions: You did not have any clear corneal abrasion. However given the foreign body sensation and irritation to your I recommend taking the antibiotics every 4 hours for the next 5 days. Follow-up with Ophthalmology, Dr. Blue if your symptoms do not improve or worsen Prescriptions: New tobramycin 0.3 % drops 2 drp ophthalmic-Left Q4H 5 Days Qty: 5 0RF No Action albuterol sulfate 90 mcg/actuation aero powdr breath act w/sensor 1 inh inhalation Q4-6H PRN Referrals: Osmani Blue [Physician] - (foreign body left eye) Print Language: French
[2024-04-25 02:34] VITALS: BP 132/84; PULSE 90; RESP 14; TEMP 36.4; O2SAT 96
== END 2024-04-25 02:35 | disposition home or self-care (01) ==
PROVIDERS: Emergency Provider Emergency Medicine; PCP Internal Medicine
DX: H57.12 Ocular pain, left eye (principal); F17.210 Nicotine dependence, cigarettes, uncomplicated; Z79.899 Other long term (current) drug therapy
CPT/HCPCS: 99283; 99284